=== PATIENT | male | born 1955 | race Caucasian/White ===

== ENCOUNTER 2018-04-19 20:05 | Emergency (ER) | payer OTHER ==
[2018-04-19 20:20] VITALS: BP 135/81
--- NOTE | 2018-04-19 20:41 | EDM.PDOC ---
ED HPI GENERAL MEDICAL PROBLEM - General Chief Complaint: Gastrointestinal Problem Stated Complaint: PER PT; HE HAS TROUBLE WITH BOTTOM END Time Seen by Provider: 04/19/18 20:33 Source of Information: Reports: Patient History Limitations: Reports: No Limitations - History of Present Illness INITIAL COMMENTS - FREE TEXT/NARRATIVE: HISTORY AND PHYSICAL: []62-year-old male presents with concerns of bright red blood when he has been going to the bathroom today History of Present Illness: []Admission has some: Difficulties in the past has had colonoscopies disease he' s had a diverticula rupture and had surgery He has been seen at [facility] he's been seen in [place] in [place] he's had a colonoscopy several years ago with Dr. Alegre Review of Systems: As per history of present illness and below otherwise all systems reviewed and negative. Past medical history: As per history of present illness and as reviewed below otherwise noncontributory. Surgical history: As per history of present illness and as reviewed below otherwise noncontributory. Social history: No reported history of drug or alcohol abuse. Family history: As per history of present illness and as reviewed below otherwise noncontributory. Physical exam: HEENT: Atraumatic, normocehpalic, pupils reactive, negative for conjunctival pallor or scleral icterus, mucous membranes moist, throat clear, neck supple, nontender, trachea midline. Lungs: Clear to auscultation, breath sounds equal bilaterally, chest non tender. Heart: S1S2, regular, negative for clicks, rubs, or JVD. Abdomen: Soft, nondistended, nontender. Negative for masses or hepatossplenmegaly. Negative for costovertebral tenderness. Pelvis: Stable nontender. Genitourinary: Deferred. Rectal: anoscope was inserted with K-Y jelly patient tolerated actually quite well, Erythematous rectal mucosa no vincent bleeding Extremities: Atraumatic, negative for cords or calf pain. Neurovascular unremarkable. Neuro: Awake, alert, oriented. Cranial nerves II through XII unremarkable. Cerebellum unremarkable. Motor and sensory unremarkable throughout. Exam nonfocal. Discussed with patient had no vincent bleeding small amount of pink to the rectal mucosa. Discussed with Dr. Alegre to patients concerns and episode today he is requesting the patient call first thing Sunday morning to his office and obtain an appointment for reevaluation Diagnostics: []Anal scope Therapeutics: [] Impression: []Rectal bleed Plan: []Discharge Stool softener twice daily Call for Dr. Alegre office to have an appointment on Sunday Definitive disposition and diagnosis as appropriate pending reevaluation and review of above. Onset: Today, Sudden Duration: Hour(s):, Getting Worse Quality: Reports: Ache, Pressure Severity: Mild Improves with: Reports: None Worsens with: Reports: None lower abdomen Pain Score (Numeric/FACES): 6 - Related Data Allergies Allergy/AdvReac Type Severity Reaction Status Date / Time diphenhydramine HCl Allergy Severe Arrhythmias Verified 04/19/18 20:20 [From Benadryl Allergy] Home Meds: Home Meds Aspirin [Katarina Chewable Aspirin] 325 mg PO DAILY 11/02/14 [History] Metoprolol Tartrate [Lopressor] 50 mg PO BID 11/02/14 [History] Past Medical History - Past Health History Medical/Surgical History: Denies Medical/Surgical History HEENT History: Reports: Allergic Rhinitis Other HEENT History: wears glasses Cardiovascular History: Reports: Afib, Heart Valve Replacement, [place] Other Cardiovascular History: 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 First aortic valve replacement was mechanical, second was bovine. Has history of A-Fib but not currently Respiratory History: Reports: None Gastrointestinal History: Reports: Diverticulosis, GERD Other Gastrointestinal History: diverticulitis, perforated colon Genitourinary History: Reports: Renal Disease Other Genitourinary History: recently diagnosed with kidney cancer, tx. percutaneous freezing with liquid nitrogen about a month ago Musculoskeletal History: Reports: Back Pain, Chronic Other Musculoskeletal History: has chronic leg and hip pain, some numbness to right leg Neurological History: Reports: Other (See Below) Other Neuro History: brain bleed but denies stroke Psychiatric History: Reports: Anxiety Endocrine/Metabolic History: Reports: Obesity/BMI 30+ Hematologic History: Reports: None Immunologic History: Reports: None Oncologic (Cancer) History: Reports: Renal Other Oncologic History: kidney tumor, malignant but did not get chemothraphy Dermatologic History: Reports: Other (See Below) Other Dermatologic History: has very sensitive skin - Infectious Disease History Infectious Disease History: Reports: Chicken Pox - Past Surgical History Head Surgeries/Procedures: Reports: None HEENT Surgical History: Reports: None Cardiovascular Surgical History: Reports: Valve Replacement Respiratory Surgical History: Reports: None Other GI Surgeries/Procedures: had partial colectomy for diverticulitis Endocrine Surgical History: Reports: None Neurological Surgical History: Reports: None Musculoskeletal Surgical History: Reports: Other (See Below) Other Oncologic Surgeries/Procedures: tumor was "frozen" Social & Family History - Family History Family Medical History: Noncontributory - Tobacco Use Smoking Status *Q: Former Smoker Used Tobacco, but Quit: Yes Month/Year Tobacco Last Used: years ago - Caffeine Use Caffeine Use: Reports: Soda - Recreational Drug Use Recreational Drug Use: No ED ROS GENERAL - Review of Systems Review Of Systems: ROS reveals no pertinent complaints other than HPI. ED EXAM, RENAL/ - Physical Exam Exam: See Below (See dictation) Course - Vital Signs Last Recorded V/S: Last Vital Signs Temp 36.2 C 04/19/18 20:16 Pulse 67 04/19/18 20:16 Resp 18 04/19/18 20:16 BP 135/81 04/19/18 20:16 Pulse Ox 97 04/19/18 20:16 Departure - Departure Time of Disposition: 20:43 Disposition: Home, Self-Care 01 Condition: Good Clinical Impression: Rectal bleeding - Discharge Information Instructions: Rectal Bleeding Referrals: PCP,None [Primary Care Provider] - Forms: ED Department Discharge Additional Instructions: The following information is given to patients seen in the emergency department who are being discharged to home. This information is to outline your options for follow-up care. We provide all patients seen in our emergency department with a follow-up referral. The need for follow-up, as well as the timing and circumstances, are variable depending upon the specifics of your emergency department visit. If you don't have a primary care physician on staff, we will provide you with a referral. We always advise you to contact your personal physician following an emergency department visit to inform them of the circumstance of the visit and for follow-up with them and/or the need for any referrals to a consulting specialist. The emergency department will also refer you to a specialist when appropriate. This referral assures that you have the opportunity for followup care with a specialist. All of these measure are taken in an effort to provide you with optimal care, which includes your followup. Under all circumstances we always encourage you to contact your private physician who remains a resource for coordinating your care. When calling for followup care, please make the office aware that this follow-up is from your recent emergency room visit. If for any reason you are refused follow-up, please contact the [facility] emergency department at and asked to speak to the emergency department charge nurse. You have the small amount of bleeding and we were unable to identify the area this was coming from Recommended to have stool softener twice daily Dr. Alegre was notified and he requested that you call his office first thing Sunday morning to obtain an appointment for reevaluation Return to emergency room if symptoms should worsen
== END 2018-04-19 20:55 | disposition home or self-care (01) ==
LOC: MW.ED 20:05
DX: K62.5 Hemorrhage of anus and rectum (principal); I25.2 Old myocardial infarction; E66.9 Obesity, unspecified; Z88.8 Allergy status to other drugs, medicaments and biological substances; Z79.82 Long term (current) use of aspirin; Z87.891 Personal history of nicotine dependence
CPT/HCPCS: 99283

== ENCOUNTER 2019-01-22 18:23 | Emergency (ER) | payer OTHER ==
[2019-01-22 19:07] VITALS: BP 179/97
[2019-01-22] MEDS ORDERED: Sodium Chloride 0.9% 1,000 ML IV ONE (19:44)
[2019-01-22] MEDS ORDERED: Metoclopramide 10 MG/2 ML SDV IV ONE (19:44)
[2019-01-22] MEDS ORDERED: Ondansetron 4 MG/2 ML SDV IVPUSH ONE (19:44)
--- NOTE | 2019-01-22 20:23 | CT ---
INDICATIONS: Headache x3 weeks. History of brain bleed. TECHNIQUE: CT head without contrast. COMPARISON: None FINDINGS: No mass effect or midline shift. No hydrocephalus. No CT evidence of acute hemorrhage or infarction. No abnormal extra-axial fluid collection. Bone windows show no acute or suspicious osseous abnormality. Mild mucosal thickening in the left maxillary sinus. Visualized paranasal sinuses and orbits are otherwise unremarkable. IMPRESSION: No acute intracranial abnormality. Dictated by Sj Prado MD @ 01/22/2019 8:21:53 PM Please note that all CT scans at this facility use dose modulation, iterative reconstruction, and/or weight-based dosing when appropriate to reduce radiation dose to as low as reasonably achievable. Dictated by: Sj Prado MD @ 01/22/2019 20:21:59 (Electronically Signed)
--- NOTE | 2019-01-22 20:40 | EDM.PDOC ---
ED HPI GENERAL MEDICAL PROBLEM - General Chief Complaint: Headache Stated Complaint: BAD HEADACHE Time Seen by Provider: 01/22/19 19:29 Source of Information: Reports: Patient History Limitations: Reports: No Limitations - History of Present Illness INITIAL COMMENTS - FREE TEXT/NARRATIVE: HISTORY AND PHYSICAL: History of present illness: Patient is a 63-year-old male presents to the ED today with concern of a headache that he rates a 6 out of 10. 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 He states that his headache is similar to one that had happened. He describes the pain as over his head. He states that he had this headache off-and-on for the past 3 weeks and wanted to come in to rule out a brain bleed. He denies fever, chills, nausea, vomiting, dizziness, visual changes, lightheadedness. Patient does have a history of prior brain bleed, aortic valve replacement. Review of systems: As per history of present illness and below otherwise all systems reviewed and negative. Past medical history: As per history of present illness and as reviewed below otherwise noncontributory. Surgical history: As per history of present illness and as reviewed below otherwise noncontributory. Social history: No reported history of drug or alcohol abuse. Family history: As per history of present illness and as reviewed below otherwise noncontributory. Physical exam: General: Patient sitting comfortably in no acute distress and nontoxic appearing HEENT: Atraumatic, normocephalic, pupils reactive, negative for conjunctival pallor or scleral icterus, mucous membranes moist, throat clear, neck supple, nontender, trachea midline. No meningeal signs. Lungs: Clear to auscultation, breath sounds equal bilaterally, chest nontender. Heart: S1S2, regular, negative for clicks, rubs. Patient does have a grade 3 systolic ejection murmur Abdomen: Soft, nondistended, nontender. Negative for masses or hepatosplenomegaly. Negative for costovertebral tenderness. No rigidity, rebound , guarding. Pelvis: Stable nontender. Genitourinary: Deferred. Rectal: Deferred. Extremities: Atraumatic, negative for cords or calf pain. Neurovascular unremarkable. Neuro: Awake, alert, oriented. Cranial nerves II through XII unremarkable. Cerebellum unremarkable. Motor and sensory unremarkable throughout. Exam nonfocal. Notes: Patient did seem a little bit nervous about the cause of his headache due to prior history of brain bleed. Did offer admission for observation to continue to monitor patient. He does have an appointment on Sunday with his time study clerk which is reassuring to him that he has follow-up. He declines at this time. Supportive care measures were reviewed and discussed with patient. He has no questions or concerns at this time is agreeable to plan of care. Diagnostics: CBC, CMP, head CT, UA Therapeutics: Therapeutics were offered but patient declines. Prescriptions: None Impression: Headache, unspecified Plan: 1. You can alternate ibuprofen and Tylenol as directed for pain and discomfort. 2. Follow-up with your primary care provider as discussed. 3. Return to the ED as needed and as discussed. Definitive disposition and diagnosis as appropriate pending reevaluation and review of above. Headache Pain Score (Numeric/FACES): 7 - Related Data Allergies Allergy/AdvReac Type Severity Reaction Status Date / Time diphenhydramine HCl Allergy Severe Arrhythmias Verified 01/22/19 19:07 [From Benadryl Allergy] Home Meds: Home Meds . 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 First aortic valve replacement was mechanical, second was bovine. Has history of A-Fib but not currently Respiratory History: Reports: None Gastrointestinal History: Reports: Diverticulosis, GERD Other Gastrointestinal History: diverticulitis, perforated colon Genitourinary History: Reports: Renal Disease Other Genitourinary History: recently diagnosed with kidney cancer, tx. percutaneous freezing with liquid nitrogen about a month ago Musculoskeletal History: Reports: Back Pain, Chronic Other Musculoskeletal History: has chronic leg and hip pain, some numbness to right leg Neurological History: Reports: Other (See Below) Other Neuro History: brain bleed but denies stroke Psychiatric History: Reports: Anxiety Endocrine/Metabolic History: Reports: Obesity/BMI 30+ Hematologic History: Reports: None Immunologic History: Reports: None Oncologic (Cancer) History: Reports: Renal Other Oncologic History: kidney tumor, malignant but did not get chemothraphy Dermatologic History: Reports: Other (See Below) Other Dermatologic History: has very sensitive skin - Infectious Disease History Infectious Disease History: Reports: Chicken Pox - Past Surgical History Head Surgeries/Procedures: Reports: None HEENT Surgical History: Reports: Adenoidectomy, Tonsillectomy Cardiovascular Surgical History: Reports: Valve Replacement Other Cardiovascular Surgeries/Procedures: loop recorder implant in place Respiratory Surgical History: Reports: None GI Surgical History: Reports: Appendectomy Other GI Surgeries/Procedures: had partial colectomy for diverticulitis Endocrine Surgical History: Reports: None Neurological Surgical History: Reports: None Musculoskeletal Surgical History: Reports: Arthroscopic Knee, Other (See Below) Other Oncologic Surgeries/Procedures: tumor was "frozen" Social & Family History - Family History Family Medical History: Noncontributory - Tobacco Use Smoking Status *Q: Never Smoker - Caffeine Use Caffeine Use: Reports: Soda - Recreational Drug Use Recreational Drug Use: No ED ROS GENERAL - Review of Systems Review Of Systems: ROS reveals no pertinent complaints other than HPI. - Physical Exam Exam: See Below (see dictation) Course - Vital Signs Last Recorded V/S: Last Vital Signs Temp 98.8 F 01/22/19 19:03 Pulse 76 01/22/19 19:03 Resp 18 01/22/19 19:03 BP 179/97 H 01/22/19 19:03 Pulse Ox 98 01/22/19 19:03 - Orders/Labs/Meds Orders: Active Orders 24 hr Category Date Time Status COMPREHENSIVE METABOLIC PN,CMP [CHEM] Stat Lab 01/22/19 19:58 Received Labs: Laboratory Tests 01/22/19 01/22/19 Range/Units 19:43 19:58 WBC 7.59 (4.0-11.0) K/uL RBC 5.28 (4.50-5.90) M/uL Hgb 15.4 (13.0-17.0) g/dL Hct 44.6 (38.0-50.0) % MCV 84.5 (80.0-98.0) fL MCH 29.2 (27.0-32.0) pg MCHC 34.5 (31.0-37.0) g/dL RDW Std Deviation 38.1 (28.0-62.0) fl RDW Coeff of [place] 13 (11.0-15.0) % Plt Count 169 (150-400) K/uL MPV 10.60 (7.40-12.00) fL Neut % (Auto) 70.9 (48.0-80.0) % Lymph % (Auto) 18.6 (16.0-40.0) % [place] % (Auto) 8.7 (0.0-15.0) % Eos % (Auto) 1.7 (0.0-7.0) % Baso % (Auto) 0.1 (0.0-1.5) % Neut # (Auto) 5.4 (1.4-5.7) K/uL Lymph # (Auto) 1.4 (0.6-2.4) K/uL [place] # (Auto) 0.7 (0.0-0.8) K/uL Eos # (Auto) 0.1 (0.0-0.7) K/uL Baso # (Auto) 0.0 (0.0-0.1) K/uL Nucleated RBC % 0.0 /100WBC Nucleated RBCs # 0 K/uL Urine Color YELLOW Urine Appearance CLEAR Urine pH 6.0 (5.0-8.0) Ur Specific [place] 1.015 (1.001-1.035) Urine Protein NEGATIVE (NEGATIVE) mg/dL Urine Glucose (UA) NEGATIVE (NEGATIVE) mg/dL Urine Ketones NEGATIVE (NEGATIVE) mg/dL Urine Occult Blood NEGATIVE (NEGATIVE) Urine Nitrite NEGATIVE (NEGATIVE) Urine Bilirubin NEGATIVE (NEGATIVE) Urine Urobilinogen 0.2 (<2.0) EU/dL Ur Leukocyte Esterase NEGATIVE (NEGATIVE) Meds: Medications Discontinued Medications Generic Name Dose Route Start Last Admin Trade Name Freq PRN Reason Stop Dose Admin Sodium Chloride 1,000 mls @ 999 mls/hr 01/22/19 19:44 Normal Saline IV 01/22/19 20:44 STAT ONE Metoclopramide HCl 10 mg 01/22/19 19:44 Reglan IV 01/22/19 19:45 ONETIME ONE Ondansetron HCl 4 mg 01/22/19 19:44 Zofran IVPUSH 01/22/19 19:45 ONETIME ONE Departure - Departure Time of Disposition: 20:40 Disposition: Home, Self-Care 01 Clinical Impression: Headache Qualifiers: Headache type: unspecified Headache chronicity pattern: unspecified pattern Intractability: intractable Qualified Code(s): R51 - Headache - Discharge Information Referrals: PCP,None [Primary Care Provider] - Forms: ED Department Discharge Additional Instructions: The following information is given to patients seen in the emergency department who are being discharged to home. This information is to outline your options for follow-up care. We provide all patients seen in our emergency department with a follow-up referral. The need for follow-up, as well as the timing and circumstances, are variable depending upon the specifics of your emergency department visit. If you don't have a primary care physician on staff, we will provide you with a referral. We always advise you to contact your personal physician following an emergency department visit to inform them of the circumstance of the visit and for follow-up with them and/or the need for any referrals to a consulting specialist. The emergency department will also refer you to a specialist when appropriate. This referral assures that you have the opportunity for follow-up care with a specialist. All of these measure are taken in an effort to provide you with optimal care, which includes your follow-up. Under all circumstances we always encourage you to contact your private physician who remains a resource for coordinating your care. When calling for follow-up care, please make the office aware that this follow-up is from your recent emergency room visit. If for any reason you are refused follow-up, please contact the [facility] Emergency Department at and asked to speak to the emergency department charge nurse. [facility] [address] [place] [id number] [facility] [address] [place] [id number] 1. You can alternate ibuprofen and Tylenol as directed for pain and discomfort. 2. Follow-up with your primary care provider as discussed. 3. Return to the ED as needed and as discussed. - My Orders Last 24 Hours: My Active Orders 01/22/19 19:58 COMPREHENSIVE METABOLIC PN,CMP [CHEM] Stat - Assessment/Plan Last 24 Hours: My Active Orders 03/27/19 19:58 COMPREHENSIVE METABOLIC PN,CMP [CHEM] Stat
[2019-01-22 21:11] LABS: CHLORIDE,CL 106 mmol/L (98-107); SODIUM,NA 144 mmol/L (136-148)
== END 2019-01-22 21:06 | disposition home or self-care (01) ==
LOC: MW.ED 18:23
DX: R51 Headache (principal); I48.91 Unspecified atrial fibrillation; I25.2 Old myocardial infarction; Z95.4 Presence of other heart-valve replacement; Z88.8 Allergy status to other drugs, medicaments and biological substances
CPT/HCPCS: 36415; 70450; 70450-26; 80053; 81003; 85025; 99283; 99284-25

== ENCOUNTER 2019-01-23 11:01 | Emergency (ER) | payer OTHER ==
[2019-01-23] MEDS ORDERED: Sodium Chloride 0.9% 1,000 ML IV SCH (11:15)
--- NOTE | 2019-01-23 11:19 | EDM.PDOC ---
ED HPI GENERAL MEDICAL PROBLEM - General Chief Complaint: Cardiovascular Problem Stated Complaint: SPOKE TO NURSE Time Seen by Provider: 01/23/19 11:03 - History of Present Illness INITIAL COMMENTS - FREE TEXT/NARRATIVE: HISTORY AND PHYSICAL: History of present illness: Patient's a 63-year-old male with extensive cardiac history including valve replacement he also has a loop recorder for the past 2 months and presents today with dizziness vomiting and near syncope we were notified from his monitoring company that he did have a 26 second pause. He denies chest pain and on arrival here is hemodynamically stable his 12-lead EKG that has sinus rhythm with a rate of 77 and prolonged [place] interval greater than 220 ms. Review of systems: As per history of present illness and below otherwise all systems reviewed and negative. Past medical history: As per history of present illness and as reviewed below otherwise noncontributory. Surgical history: As per history of present illness and as reviewed below otherwise noncontributory. Social history: No reported history of drug or alcohol abuse. Family history: As per history of present illness and as reviewed below otherwise noncontributory. Physical exam: HEENT: Atraumatic, normocephalic, pupils reactive, negative for conjunctival pallor or scleral icterus, mucous membranes moist, throat clear, neck supple, nontender, trachea midline. Lungs: Clear to auscultation, breath sounds equal bilaterally, chest nontender. Heart: S1S2, regular, negative for clicks, rubs, or JVD. Abdomen: Soft, nondistended, nontender. Negative for masses or hepatosplenomegaly. Negative for costovertebral tenderness. Pelvis: Stable nontender. Genitourinary: Deferred. Rectal: Deferred. Extremities: Atraumatic, negative for cords or calf pain. Neurovascular unremarkable. Neuro: Awake, alert, oriented. Cranial nerves II through XII unremarkable. Cerebellum unremarkable. Motor and sensory unremarkable throughout. Exam nonfocal. Diagnostics: CBC CMP troponin PT/INR chest x-ray EKG Therapeutics: IV O2 monitor Impression: #1 near syncope #2 history of 26 second pause #3 rule out sick sinus syndrome Definitive disposition and diagnosis as appropriate pending reevaluation and review of above. 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 First aortic valve replacement was mechanical, second was bovine. Has history of A-Fib but not currently Respiratory History: Reports: None Gastrointestinal History: Reports: Diverticulosis, GERD Other Gastrointestinal History: diverticulitis, perforated colon Genitourinary History: Reports: Renal Disease Other Genitourinary History: recently diagnosed with kidney cancer, tx. percutaneous freezing with liquid nitrogen about a month ago Musculoskeletal History: Reports: Back Pain, Chronic Other Musculoskeletal History: has chronic leg and hip pain, some numbness to right leg Neurological History: Reports: Other (See Below) Other Neuro History: brain bleed but denies stroke Psychiatric History: Reports: Anxiety Endocrine/Metabolic History: Reports: Obesity/BMI 30+ Hematologic History: Reports: None Immunologic History: Reports: None Oncologic (Cancer) History: Reports: Renal Other Oncologic History: kidney tumor, malignant but did not get chemothraphy Dermatologic History: Reports: Other (See Below) Other Dermatologic History: has very sensitive skin - Infectious Disease History Infectious Disease History: Reports: Chicken Pox, Mumps - Past Surgical History Head Surgeries/Procedures: Reports: None HEENT Surgical History: Reports: Adenoidectomy, Tonsillectomy Cardiovascular Surgical History: Reports: Valve Replacement Other Cardiovascular Surgeries/Procedures: loop recorder implant in place Respiratory Surgical History: Reports: None GI Surgical History: Reports: Appendectomy Other GI Surgeries/Procedures: had partial colectomy for diverticulitis Male Surgical History: Reports: None Endocrine Surgical History: Reports: None Neurological Surgical History: Reports: None Musculoskeletal Surgical History: Reports: Arthroscopic Knee, Other (See Below) Oncologic Surgical History: Reports: Other (See Below) Other Oncologic Surgeries/Procedures: tumor was "frozen" Dermatological Surgical History: Reports: None Social & Family History - Family History Family Medical History: Noncontributory - Tobacco Use Smoking Status *Q: Former Smoker Used Tobacco, but Quit: Yes Month/Year Tobacco Last Used: 1989 - Caffeine Use Caffeine Use: Reports: None - Recreational Drug Use Recreational Drug Use: No ED ROS GENERAL - Review of Systems Review Of Systems: ROS reveals no pertinent complaints other than HPI. ED EXAM, GENERAL - Physical Exam Exam: See Below (See dictation) Course - Vital Signs Last Recorded V/S: Last Vital Signs Temp 36.6 C 01/23/19 11:07 Pulse 78 01/23/19 11:07 Resp 20 01/23/19 11:07 BP 153/90 H 01/23/19 11:07 Pulse Ox 97 01/23/19 11:07 - Orders/Labs/Meds Orders: Active Orders 24 hr Category Date Time Status EKG Documentation Completion [RC] STAT Care 01/23/19 11:06 Active Pulse Oximetry [RC] ASDIRECTED Care 01/23/19 11:07 Active Chest 1V Frontal [CR] Stat Exams 01/23/19 11:07 Taken B-TYPE NATRIURETIC PEPTIDE,BNP [CHEM] Stat Lab 01/23/19 11:07 Received COMPREHENSIVE METABOLIC PN,CMP [CHEM] Stat Lab 01/23/19 11:07 Received INR,PT,PROTHROMBIN TIME [COAG] Stat Lab 01/23/19 11:07 Received TROPONIN I [CHEM] Stat Lab 01/23/19 11:07 Received Sodium Chloride 0.9% [Normal Saline] 1,000 ml Med 01/23/19 11:15 Active IV STAT Medication Orders Sodium Chloride (Normal Saline) 1,000 mls @ 125 mls/hr IV STAT SHIELA Last Admin: 01/23/19 11:16 Dose: 125 mls/hr Labs: Laboratory Tests 01/23/19 Range/Units 11:07 WBC 9.70 (4.0-11.0) K/uL RBC 5.61 (4.50-5.90) M/uL Hgb 16.3 (13.0-17.0) g/dL Hct 47.5 (38.0-50.0) % MCV 84.7 (80.0-98.0) fL MCH 29.1 (27.0-32.0) pg MCHC 34.3 (31.0-37.0) g/dL RDW Std Deviation 38.9 (28.0-62.0) fl RDW Coeff of [place] 13 (11.0-15.0) % Plt Count 150 (150-400) K/uL MPV 10.10 (7.40-12.00) fL Neut % (Auto) 78.5 (48.0-80.0) % Lymph % (Auto) 11.9 L (16.0-40.0) % [place] % (Auto) 8.9 (0.0-15.0) % Eos % (Auto) 0.5 (0.0-7.0) % Baso % (Auto) 0.2 (0.0-1.5) % Neut # (Auto) 7.6 H (1.4-5.7) K/uL Lymph # (Auto) 1.2 (0.6-2.4) K/uL [place] # (Auto) 0.9 H (0.0-0.8) K/uL Eos # (Auto) 0.1 (0.0-0.7) K/uL Baso # (Auto) 0.0 (0.0-0.1) K/uL Nucleated RBC % 0.0 /100WBC Nucleated RBCs # 0 K/uL Meds: Medications Generic Name Dose Route Start Last Admin Trade Name Freq PRN Reason Stop Dose Admin Sodium Chloride 1,000 mls @ 125 mls/hr 01/23/19 11:15 01/23/19 11:16 Normal Saline IV 125 mls/hr STAT SHIELA Administration Discontinued Medications Generic Name Dose Route Start Last Admin Trade Name Freq PRN Reason Stop Dose Admin Ondansetron HCl 4 mg 01/23/19 11:21 01/23/19 11:33 Zofran IVPUSH 01/23/19 11:22 4 mg ONETIME ONE Administration Departure - Departure Time of Disposition: 11:34 Disposition: DC/Tfer to Acute Hospital 02 Reason for Transfer *Q: Other Condition: Good Clinical Impression: Near syncope, Sick sinus syndrome Referrals: PCP,Unknown [Primary Care Provider] - Forms: ED Department Discharge - My Orders Last 24 Hours: My Active Orders 01/23/19 11:06 EKG Documentation Completion [RC] STAT 01/23/19 11:07 Pulse Oximetry [RC] ASDIRECTED Chest 1V Frontal [CR] Stat B-TYPE NATRIURETIC PEPTIDE,BNP [CHEM] Stat COMPREHENSIVE METABOLIC PN,CMP [CHEM] Stat INR,PT,PROTHROMBIN TIME [COAG] Stat TROPONIN I [CHEM] Stat 01/23/19 11:15 Sodium Chloride 0.9% [Normal Saline] 1,000 ml IV STAT - Assessment/Plan Last 24 Hours: My Active Orders 01/23/19 11:06 EKG Documentation Completion [RC] STAT 01/23/19 11:07 Pulse Oximetry [RC] ASDIRECTED Chest 1V Frontal [CR] Stat B-TYPE NATRIURETIC PEPTIDE,BNP [CHEM] Stat COMPREHENSIVE METABOLIC PN,CMP [CHEM] Stat INR,PT,PROTHROMBIN TIME [COAG] Stat TROPONIN I [CHEM] Stat 01/23/19 11:15 Sodium Chloride 0.9% [Normal Saline] 1,000 ml IV STAT
[2019-01-23] MEDS ORDERED: Ondansetron 4 MG/2 ML SDV IVPUSH ONE (11:21)
--- NOTE | 2019-01-23 11:44 | CR ---
EXAMINATION: Portable chest radiograph. HISTORY: Shortness of breath. FINDINGS: The trachea is midline. The cardiomediastinal silhouette is within normal limits. No pulmonary infiltrates, effusions or pneumothorax. Median sternotomy wires are noted. Implanted printed circuit photographer noted. Osseous structures appear unremarkable. IMPRESSION: No acute cardiopulmonary process.
[2019-01-23 11:54] LABS: CHLORIDE,CL 105 mmol/L (98-107); SODIUM,NA 143 mmol/L (136-148)
[2019-01-23 12:41] VITALS: BP 128/82
== END 2019-01-23 12:40 ==
LOC: MW.ED 11:01
DX: I49.5 Sick sinus syndrome (principal); I48.91 Unspecified atrial fibrillation; F41.9 Anxiety disorder, unspecified; Z88.8 Allergy status to other drugs, medicaments and biological substances; Z91.09 Other allergy status, other than to drugs and biological substances; Z79.899 Other long term (current) drug therapy; Z87.891 Personal history of nicotine dependence
CPT/HCPCS: 36415; 71045; 80053; 83880; 84484; 85025; 85610; 93005; 96361; 96374; 99285; J2405; J7040

== ENCOUNTER 2021-01-16 11:02 | Emergency (ER) | payer OTHER ==
--- NOTE | 2021-01-16 11:19 | EDM.PDOC ---
ED HPI GENERAL MEDICAL PROBLEM - General Chief Complaint: Chest Pain Stated Complaint: CHEST PAIN Time Seen by Provider: 01/16/21 11:15 Source of Information: Reports: Patient History Limitations: Reports: No Limitations - History of Present Illness INITIAL COMMENTS - FREE TEXT/NARRATIVE: Patient is a 65 old male who presents today for dizziness. Patient states that he felt like the room spinning he was in a pass out. Patient felt dizzy while rest. Patient states nothing makes dizziness worse and not better. Patient states that he felt this similar to more when he had get the pacemaker placed. Patient denies having any chest pain currently. Patient denies any shortness of breath and vision changes. Patient does report some nausea but no vomiting. Patient denies any weakness numbness in extremities. - Related Data Allergies Allergy/AdvReac Type Severity Reaction Status Date / Time diphenhydramine HCl Allergy Severe Arrhythmias Verified 01/16/21 11:18 [From Benadryl Allergy] plasma protein fraction Allergy Dizziness Verified 01/16/21 11:18 Home Meds: Home Meds Famotidine [Pepcid] 20 mg PO BID 01/23/19 [History] Metoprolol Succinate 1 dose PO DAILY 01/16/21 [History] Past Medical History - Past Health History Medical/Surgical History: Denies Medical/Surgical History HEENT History: Reports: Allergic Rhinitis Other HEENT History: wears glasses Cardiovascular History: Reports: Afib, Heart Valve Replacement, [place] Other Cardiovascular History: 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 First aortic valve replacement was mechanical, second was bovine. Has history of A-Fib but not currently Respiratory History: Reports: None Gastrointestinal History: Reports: Diverticulosis, GERD Other Gastrointestinal History: diverticulitis, perforated colon Genitourinary History: Reports: Renal Disease Other Genitourinary History: recently diagnosed with kidney cancer, tx. percutaneous freezing with liquid nitrogen about a month ago Musculoskeletal History: Reports: Back Pain, Chronic Other Musculoskeletal History: has chronic leg and hip pain, some numbness to right leg Neurological History: Reports: Other (See Below) Other Neuro History: brain bleed but denies stroke Psychiatric History: Reports: Anxiety Endocrine/Metabolic History: Reports: Obesity/BMI 30+ Hematologic History: Reports: None Immunologic History: Reports: None Oncologic (Cancer) History: Reports: Renal Other Oncologic History: kidney tumor, malignant but did not get chemothraphy Dermatologic History: Reports: Other (See Below) Other Dermatologic History: has very sensitive skin - Infectious Disease History Infectious Disease History: Reports: Chicken Pox, Mumps - Past Surgical History Head Surgeries/Procedures: Reports: None HEENT Surgical History: Reports: Adenoidectomy, Tonsillectomy Cardiovascular Surgical History: Reports: Valve Replacement Other Cardiovascular Surgeries/Procedures: loop recorder implant in place Respiratory Surgical History: Reports: None GI Surgical History: Reports: Appendectomy Other GI Surgeries/Procedures: had partial colectomy for diverticulitis Male Surgical History: Reports: None Endocrine Surgical History: Reports: None Neurological Surgical History: Reports: None Musculoskeletal Surgical History: Reports: Arthroscopic Knee, Other (See Below) Oncologic Surgical History: Reports: Other (See Below) Other Oncologic Surgeries/Procedures: tumor was "frozen" Dermatological Surgical History: Reports: None Social & Family History - Family History Family Medical History: No Pertinent Family History - Caffeine Use Caffeine Use: Reports: None ED ROS GENERAL - Review of Systems Review Of Systems: See Below Constitutional: Reports: No Symptoms HEENT: Reports: No Symptoms Respiratory: Reports: No Symptoms Cardiovascular: Reports: No Symptoms Endocrine: Reports: No Symptoms GI/Abdominal: Reports: Nausea : Reports: No Symptoms Musculoskeletal: Reports: No Symptoms Skin: Reports: No Symptoms Neurological: Reports: Dizziness Psychiatric: Reports: No Symptoms Hematologic/Lymphatic: Reports: No Symptoms Immunologic: Reports: No Symptoms ED EXAM, GENERAL - Physical Exam Exam: See Below Exam Limited By: No Limitations General Appearance: Alert, WD/WN Eye Exam: Bilateral Eye: EOMI, PERRL Respiratory/Chest: No Respiratory Distress, Lungs Clear Cardiovascular: Normal Peripheral Pulses, Regular Rate, Rhythm Peripheral Pulses: 2+: Radial (L), Radial (R) GI/Abdominal: Normal Bowel Sounds, Soft, Non-Tender Extremities: Normal Inspection, Normal Range of Motion Neurological: Alert, Oriented, CN II-XII Intact, Normal Cognition #1 Interpretation EKG Date: 01/16/21 Time: 11:10 Rhythm: NSR Rate (Beats/Min): 67 ST-T: Normal (inverted t wave V1 and V2) Course - Vital Signs Last Recorded V/S: Last Vital Signs Temp 95.8 F L 01/16/21 11:02 Pulse 73 01/16/21 13:45 Resp 18 01/16/21 11:49 BP 118/76 01/16/21 13:45 Pulse Ox 94 L 01/16/21 13:45 - Orders/Labs/Meds Orders: Active Orders 24 hr Category Date Time Status EKG Documentation Completion [RC] STAT Care 01/16/21 11:30 Active Nitroglycerin [Nitrostat] Med 01/16/21 11:44 Active 0.4 mg SL Q5M PRN Medication Orders Nitroglycerin (Nitroglycerin 0.4 Mg Tab.Sl) 0.4 mg SL Q5M PRN PRN Reason: Chest Pain Labs: Laboratory Tests 01/16/21 01/16/21 01/16/21 Range/Units 11:22 11:22 11:22 WBC 7.21 (4.0-11.0) K/uL RBC 5.63 (4.50-5.90) M/uL Hgb 16.8 (13.0-17.0) g/dL Hct 49.2 (38.0-50.0) % MCV 87.4 (80.0-98.0) fL MCH 29.8 (27.0-32.0) pg MCHC 34.1 (31.0-37.0) g/dL RDW Std Deviation 40.6 (28.0-62.0) fl RDW Coeff of [place] 13 (11.0-15.0) % Plt Count 171 (150-400) K/uL MPV 10.40 (7.40-12.00) fL Neut % (Auto) 62.6 (48.0-80.0) % Lymph % (Auto) 26.6 (16.0-40.0) % [place] % (Auto) 8.5 (0.0-15.0) % Eos % (Auto) 2.2 (0.0-7.0) % Baso % (Auto) 0.1 (0.0-1.5) % Neut # (Auto) 4.5 (1.4-5.7) K/uL Lymph # (Auto) 1.9 (0.6-2.4) K/uL [place] # (Auto) 0.6 (0.0-0.8) K/uL Eos # (Auto) 0.2 (0.0-0.7) K/uL Baso # (Auto) 0.0 (0.0-0.1) K/uL Nucleated RBC % 0.0 /100WBC Nucleated RBCs # 0 K/uL INR 1.08 APTT 28.8 (18.6-31.3) SEC Sodium 140 (136-148) mmol/L Potassium 4.2 (3.5-5.1) mmol/L Chloride 103 (98-107) mmol/L Carbon Dioxide 31.2 (21.0-32.0) mmol/L BUN 21 H (7.0-18.0) mg/dL Creatinine 1.3 (0.8-1.3) mg/dL Est Cr Clr Drug Dosing 56.65 mL/min Estimated GFR (MDRD) 55.4 ml/min Glucose 102 (74-106) mg/dL Calcium 9.1 (8.5-10.1) mg/dL Magnesium 2.3 (1.8-2.4) mg/dL Total Bilirubin 0.5 (0.2-1.0) mg/dL AST 24 (15-37) IU/L ALT 50 (14-63) IU/L Alkaline Phosphatase 82 (46-116) U/L Creatine Kinase 119 (26-308) U/L Troponin I < 0.050 (0.000-0.056) ng/mL Total Protein 7.9 (6.4-8.2) g/dL Albumin 4.3 (3.4-5.0) g/dL Globulin 3.6 (2.6-4.0) g/dL Albumin/Globulin Ratio 1.2 (0.9-1.6) Lipase 103 (73-393) U/L 01/16/21 Range/Units 14:07 WBC (4.0-11.0) K/uL RBC (4.50-5.90) M/uL Hgb (13.0-17.0) g/dL Hct (38.0-50.0) % MCV (80.0-98.0) fL MCH (27.0-32.0) pg MCHC (31.0-37.0) g/dL RDW Std Deviation (28.0-62.0) fl RDW Coeff of [place] (11.0-15.0) % Plt Count (150-400) K/uL MPV (7.40-12.00) fL Neut % (Auto) (48.0-80.0) % Lymph % (Auto) (16.0-40.0) % [place] % (Auto) (0.0-15.0) % Eos % (Auto) (0.0-7.0) % Baso % (Auto) (0.0-1.5) % Neut # (Auto) (1.4-5.7) K/uL Lymph # (Auto) (0.6-2.4) K/uL [place] # (Auto) (0.0-0.8) K/uL Eos # (Auto) (0.0-0.7) K/uL Baso # (Auto) (0.0-0.1) K/uL Nucleated RBC % /100WBC Nucleated RBCs # K/uL INR APTT (18.6-31.3) SEC Sodium (136-148) mmol/L Potassium (3.5-5.1) mmol/L Chloride (98-107) mmol/L Carbon Dioxide (21.0-32.0) mmol/L BUN (7.0-18.0) mg/dL Creatinine (0.8-1.3) mg/dL Est Cr Clr Drug Dosing mL/min Estimated GFR (MDRD) ml/min Glucose (74-106) mg/dL Calcium (8.5-10.1) mg/dL Magnesium (1.8-2.4) mg/dL Total Bilirubin (0.2-1.0) mg/dL AST (15-37) IU/L ALT (14-63) IU/L Alkaline Phosphatase (46-116) U/L Creatine Kinase 106 (26-308) U/L Troponin I < 0.050 (0.000-0.056) ng/mL Total Protein (6.4-8.2) g/dL Albumin (3.4-5.0) g/dL Globulin (2.6-4.0) g/dL Albumin/Globulin Ratio (0.9-1.6) Lipase (73-393) U/L Meds: Medications Generic Name Dose Route Start Last Admin Trade Name Freq PRN Reason Stop Dose Admin Nitroglycerin 0.4 mg 01/16/21 11:44 Nitroglycerin 0.4 Mg Tab.Sl SL Q5M PRN Chest Pain Discontinued Medications Generic Name Dose Route Start Last Admin Trade Name Sosa PRN Reason Stop Dose Admin Iopamidol 100 ml 01/16/21 13:44 01/16/21 13:45 Iopamidol 755 Mg/Ml 500 Ml Multipack Bottle IVPUSH 01/16/21 13:45 100 ml ONETIME ONE Administration Meclizine HCl 25 mg 01/16/21 13:01 01/16/21 13:17 Meclizine 25 Mg Tab PO 01/16/21 13:02 Not Given ONETIME ONE Metoclopramide HCl 10 mg 01/16/21 13:10 01/16/21 13:22 Metoclopramide 10 Mg/2 Ml Sdv IVPUSH 01/16/21 13:11 10 mg ONETIME ONE Administration - Re-Assessments/Exams Free Text/Narrative Re-Assessment/Exam: 01/16/21 14:[address] reviewed. Initial thought was to admit patient however patient states that he feels fine before to go home. We did 2 sets of tropes also did a CTA that were essentially negative. Patient is mixed medic free while in the ED. Will discharge patient as he has follow-up this week with primary care physician. Departure - Departure Time of Disposition: 14:46 Disposition: Home, Self-Care 01 Condition: Good Clinical Impression: Dizziness Instructions: Dizziness Referrals: Stephane Cota MD [Primary Care Provider] - Forms: ED Department Discharge Additional Instructions: The following information is given to patients seen in the emergency department who are being discharged to home. This information is to outline your options for follow-up care. We provide all patients seen in our emergency department with a follow-up referral. The need for follow-up, as well as the timing and circumstances, are variable depending upon the specifics of your emergency department visit. If you don't have a primary care physician on staff, we will provide you with a referral. We always advise you to contact your personal physician following an emergency department visit to inform them of the circumstance of the visit and for follow-up with them and/or the need for any referrals to a consulting specialist. The emergency department will also refer you to a specialist when appropriate. This referral assures that you have the opportunity for follow-up care with a specialist. All of these measure are taken in an effort to provide you with optimal care, which includes your follow-up. Under all circumstances we always encourage you to contact your private physician who remains a resource for coordinating your care. When calling for follow-up care, please make the office aware that this follow-up is from your recent emergency room visit. If for any reason you are refused follow-up, please contact the [facility] Emergency Department at and asked to speak to the emergency department charge nurse. Please follow up with your primary care physician. If you do not have a primary care physician, see below: [facility] [address] [place] [id number] [facility] [address] [place] [address] Please refer to your primary care physician. If you have any worsening of the symptoms for chest pain headaches or other concerns please return to the ED. We perform CAT scan check EKG and pacemaker everything seems within normal limits. Sepsis Event Note (ED) - Focused Exam Vital Signs: Vital Signs Temp Pulse Resp BP Pulse Ox 01/16/21 13:45 73 118/76 94 L 01/16/21 12:35 69 132/76 96 01/16/21 11:49 72 18 144/82 H 94 L 01/16/21 11:02 95.8 F L 68 18 153/92 H 98 - My Orders Last 24 Hours: My Active Orders 01/16/21 11:30 EKG Documentation Completion [RC] STAT 01/16/21 11:44 Nitroglycerin [Nitrostat] 0.4 mg SL Q5M PRN - Assessment/Plan Last 24 Hours: My Active Orders 01/16/21 11:30 EKG Documentation Completion [RC] STAT 01/16/21 11:44 Nitroglycerin [Nitrostat] 0.4 mg SL Q5M PRN Plan: Patient is a 65-year-old male who presents today for dizziness that started this morning. Dizziness been constant not made worse or better with any associated symptoms. Will obtain EKG interrogate his pacemaker labs and CT scan of his head.
[2021-01-16] MEDS ORDERED: Nitroglycerin 0.4 MG Tab.SL SL PRN (11:44)
[2021-01-16 11:55] LABS: BLOOD UREA NITROGEN,BUN 21 mg/dL (7.0-18.0); CARBON DIOXIDE,CO2 31.2 mmol/L (21.0-32.0); CHLORIDE,CL 103 mmol/L (98-107); GLUCOSE RANDOM 102 mg/dL (74-106); LIPASE 103 U/L (73-393); POTASSIUM,K 4.2 mmol/L (3.5-5.1); SODIUM,NA 140 mmol/L (136-148)
--- NOTE | 2021-01-16 12:42 | CR ---
INDICATION: Dizziness TECHNIQUE: Chest 1 view. COMPARISON: Chest x-ray 01/23/2018 FINDINGS: There are postsurgical changes of median sternotomy. There is a 2 lead cardiac device. The heart is stable in size. The pulmonary vasculature is within normal limits. The lungs are clear without focal consolidation, pleural effusion or pneumothorax. The bones are unremarkable. IMPRESSION: No acute process Dictated by Elly Calhoun MD @ Jan 16 2021 12:40PM Signed by Dr. Elly Calhoun @ Jan 16 2021 12:41PM
--- NOTE | 2021-01-16 12:48 | CT ---
INDICATION: Dizziness, headache TECHNIQUE: CT head without contrast. COMPARISON: CT head 09/07/2020 FINDINGS: The ventricles are in proportion to the cortical sulci and consistent with patient`s stated age. The atkins-white matter junction is distinct. Negative for acute intracranial hemorrhage, extra-axial fluid collection or midline shift. The basal cisterns are intact. The bony calvarium is intact. The visualized paranasal sinuses and mastoid air cells are clear. IMPRESSION: Stable noncontrast CT examination of the head without acute intracranial abnormality. Please note that all CT scans at this facility use dose modulation, iterative reconstruction, and/or weight-based dosing when appropriate to reduce radiation dose to as low as reasonably achievable. Dictated by Elly Calhoun MD @ Jan 16 2021 12:41PM Signed by Dr. Elly Calhoun @ Jan 16 2021 12:46PM
[2021-01-16] MEDS ORDERED: Meclizine 25 MG Tab PO ONE (13:01)
[2021-01-16] MEDS ORDERED: Metoclopramide 10 MG/2 ML SDV IVPUSH ONE (13:10)
[2021-01-16] MEDS ORDERED: Iopamidol 755 MG/ML 500 ML Multipack Bottle IVPUSH ONE (13:44)
--- NOTE | 2021-01-16 14:18 | CT ---
DATE: 01/16/2021. CLINICAL HISTORY: Patient with diffuse headache. TECHNIQUE: Standard helical CT image acquisition through the head was performed after intravenous contrast bolus enhancement. Multiplanar reconstructed images were performed and interpreted. COMPARISON: Head CT dated 01/16/2021. FINDINGS: No intracranial proximal large vessel occlusion or flow-limiting luminal stenosis. No evidence of cerebral aneurysm. No findings to suggest an arterial-venous shunting lesion. 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 IMPRESSION: No intracranial proximal large vessel occlusion, flow-limiting luminal stenosis common or cerebral aneurysm. Please note that all CT scans at this facility use dose modulation, iterative reconstruction, and/or weight-based dosing when appropriate to reduce radiation dose to as low as reasonably achievable. Dictated by Kendrick Fink MD @ Jan 16 2021 4:24PM Signed by Dr. Kendrick Fink @ Jan 16 2021 4:29PM
[2021-01-16 15:42] VITALS: BP 141/79; PULSE 75
== END 2021-01-16 14:50 | disposition home or self-care (01) ==
LOC: MW.ED 11:02
DX: R42 Dizziness and giddiness (principal); R11.0 Nausea; I48.91 Unspecified atrial fibrillation; I25.2 Old myocardial infarction; K21.9 Gastro-esophageal reflux disease without esophagitis; E66.9 Obesity, unspecified; Z68.29 Body mass index [BMI] 29.0-29.9, adult; Z88.8 Allergy status to other drugs, medicaments and biological substances; Z79.899 Other long term (current) drug therapy
CPT/HCPCS: 36415; 70450; 70496; 71045; 80053; 82550; 83690; 83735; 84484; 85025; 85610; 85730; 93005; 96374; 99284; J2765; Q9967; 93010; 99283